=== PATIENT | male | born 1935 | race Caucasian/White ===

== ENCOUNTER 2016-08-03 06:12 | Observation (INO) | payer MEDICARE, BC ==
[2016-07-27 14:04] LABS: HEMATOCRIT 34.2 % (40.0-51.0); HEMOGLOBIN 10.7 g/dL (13.6-17.8)
[2016-07-27 14:21] LABS: CALCIUM, SERUM 8.1 MG/DL (8.5-10.4); CHLORIDE, SERUM 110 MMOL/L (96-112); CO2 (CARBON DIOXIDE) 29 MMOL/L (24-34); CREATININE 2.59 MG/DL (0.70-1.30); GFR AFRICAN AMERICAN 26 ML/MIN (>=60); GFR NON AFRICAN AMERICAN 22 ML/MIN (>=60); GLUCOSE, SERUM 125 MG/DL (60-99); POTASSIUM, SERUM 4.9 MMOL/L (3.5-5.3); SODIUM, SERUM 145 MMOL/L (135-148)
[2016-07-27 14:24] LABS: BUN (BLOOD UREA NITROGEN) 58 MG/DL (6-23)
[2016-07-27 14:30] LABS: ASCORBIC ACID (UR NOT ORDER) NEG (NEG); BILIRUBIN, URINE NEGATIVE (NEG); KETONE, URINE NEGATIVE (NEG); LEUKOCYTE ESTERASE(NOT OR NEG (NEG); WBC (NOT ORDERED) (RFLEX) < 1 (0-5)
--- NOTE | ~2016-08-03 | OP ---
Record Of Operation [facility] [address] [place]. [address] NAME: JAYANT FARLEY : 33 STATUS : ADM IN PAT#: [id number] AGE: 81 ADM/REG DATE : 08/03/16 MR#: [id number] REPORT SERV DATE: 08/03/16 DICTATED BY: ORLANDO PRICE JR. DATE: 08/03/16 REPORT STATUS : Draft TRANSCRIBED BY: MODL DATE: 08/03/16 DATE OF PROCEDURE: 08/03/2016 SURGEON: Orlando Price M.D. PREOPERATIVE DIAGNOSIS: Stress urinary incontinence. POSTOPERATIVE DIAGNOSIS: Stress urinary incontinence. PROCEDURE PERFORMED: Revision and replacement of artificial urinary sphincter cuff. COMPLICATIONS: None. CONSULTATIONS: None. ANESTHESIA: General with laryngeal mask airway. SPECIMENS: Old sphincter cuff. DRAINS: A 14-Russian Ayala catheter. ESTIMATED BLOOD LOSS: 5 mL. INDICATION: Mr. Farley is an 81-year-old gentleman, who is status post radical retropubic prostatectomy and placement of artificial urinary sphincter at [place] many years ago. 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 He does have some control of his urinary bladder but does have continuous stress incontinence and has to wear multiple pads per day. On cystoscopic examination, the sphincter appears to be in good position. There was some question of a stricture at the site of the sphincter, but otherwise the sphincter just appeared to not coapt very well on cystoscopic examination. PROCEDURE IN DETAIL: After the patient was identified and proper informed consent was obtained, he was taken to the operating room. General anesthesia was performed without complication using a laryngeal mask airway. He was then prepped and draped in a normal sterile fashion in the lithotomy position. A perineal incision was made in the midline and a Davenport retractor was used to gain visibility and access to the peritoneum. Using electrocautery, I was able to cut down on to the sphincter itself and expose it using sharp dissection laterally and posteriorly with Metzenbaum scissors. I removed the sphincter from around the urethra and identified that there was some urethral atrophy present. Cystoscopic examination at this point did reveal a slight stricture of the urethra. This was dilated gently using a 14 and 16-Russian catheters over a guidewire. I then made a second incision suprapubically and identified and brought out the old sphincter tubing. I measured the amount of fluid within the reservoir, there was only 19 mL, I replaced that with 23 mL and replaced the rubber shod on the reservoir tubing. The patient was happy with the current sphincter pump mechanism and I did not remove it in its location. I then measured the urethra, it measured at 3.0 cm in circumference. I placed a 3.5 cm cuff around the urethra Record Of Operation [facility] [id number] [place]. [address] NAME: JAYANT FARLEY : 34 STATUS : ADM IN PAT#: [id number] AGE: 81 ADM/REG DATE : 08/03/16 MR#: [id number] REPORT SERV DATE: 08/03/16 DICTATED BY: ORLANDO PRICE JR. DATE: 08/03/16 REPORT STATUS : Draft TRANSCRIBED BY: RAFA DATE: 08/03/16 and brought the tubing up to the suprapubic incision. I connected it to the pump device and then cycled the sphincter. On examination with the cystoscope, the sphincter appeared to function properly. There was nice coaptation of the sphincter and it appeared to be in good position without any twists or distortion of the urethral lumen. I then irrigated both wounds copiously using sterile saline with some antibacterial additive. I then closed the suprapubic incision in 2 layers, 1 layer of 3-0 Vicryl suture in the Anat's fascia and a 4 0 Monocryl in the skin. I then closed the perineal wound in multiple layers of 2-0 and 3-0 Vicryl reapproximating the layers of the perineum finally using a 3-0 chromic in the skin and Dermabond was used for dressing in this area. I then performed cystoscopy once again, cycled the sphincter under direct vision, once again all appeared to be in good position. I then placed a 14-Russian catheter over a guidewire through the deactivated sphincter, placed it to gravity drainage. The patient was awakened in the operating room and transferred to the postanesthesia care unit in stable condition. I will remove his catheter in the morning. I will see him back in the office in two weeks. DULCE MARIA/RAFA Orlando Price Jr., M.D. / [id number] CC: Orlando Price Jr., M.D.
[~2016-08-03 06:12] MED LIST: ACET500CAP PO; APRES50 PO; ASAB PO; C1 PO; CARDCD180 PO; CELEXA20 PO; COREG12 PO; COREG25 PO; COSAMIN DS1 TAB PO; COUMADIN7.5 MG PO; COZ50 PO; COZAAR100 MG PO; DEMA20 PO; FISH OIL OTC PO; FISH-EPA1000 MG PO; FOLINIC PLUS PO; FORTAMET500 MG PO; GLUCOPHAGE1000 MG PO; GLUCOSAMINEPO PO; JANTOVEN4 MG PO; JANTOVEN5 MG PO; JANTOVEN7.5 MG PO; JANUVIA50 PO; L20 PO; LANTUS SC; LOTEMAX0.5 % OP; MAGNESIUM 250MG PO; METANX PO; MIRAPEX250 PO; MONODOX100 MG PO; MULTIVIT/MIN PO; NEUR100 PO; NORV10 PO; NORV5 PO; OCUVITE PO; PLAVIX PO; PRAVACHOL40 MG PO; SPIRO25 PO; TEARS PLUS OPH; TRESIBA FL200 UNIT/1 SC; VESICARE5 PO; VIGAMOX OPH; VITAMIN D2000 UNIT PO; VITAMIN D31000 UNIT PO; VITC500 PO; Z100 PO; Z300 PO; ZOCOR40 PO; ZOL50 PO; ZOLOFT25 MG PO; ZYRTEC ALLGY10 MG PO
[2016-08-03 07:06] LABS: INTERNATIONAL NORMAL RATI 1.3 UNITS (-); PROTIME (NOT ORD) 16.1 SEC (12.0-14.5)
[2016-08-04] MEDS ORDERED: CEFT5 PO (11:55)
[2016-08-04] MEDS ORDERED: NORCO1 TA2 PO (11:56)
[2016-08-04] MEDS ORDERED: TRESIBA FL100 UNIT/1 (11:58)
== END 2016-08-04 13:33 | disposition home or self-care (01) ==
LOC: SDC/OF 06:12 → PACU 11:24 → 4SO 13:15
PROVIDERS: Urology
PROC: 0TR Urinary System, Replacement (ICD-10-PCS; principal; 2016-08-03 07:45)
DX: N39.3 Stress incontinence (female) (male) (principal); I11.0 Hypertensive heart disease with heart failure; I50.9 Heart failure, unspecified; E66.01 Morbid (severe) obesity due to excess calories; I49.9 Cardiac arrhythmia, unspecified; E11.9 Type 2 diabetes mellitus without complications; F32.9 Major depressive disorder, single episode, unspecified; M19.90 Unspecified osteoarthritis, unspecified site; G89.29 Other chronic pain; Z68.36 Body mass index [BMI] 36.0-36.9, adult; Z99.89 Dependence on other enabling machines and devices; Z88.8 Allergy status to other drugs, medicaments and biological substances; Z79.899 Other long term (current) drug therapy; Z98.52 Vasectomy status; Z98.41 Cataract extraction status, right eye; Z98.42 Cataract extraction status, left eye; Z98.890 Other specified postprocedural states; Z90.89 Acquired absence of other organs
CPT/HCPCS: 80048; 81001; 82962; 85014; 85018; 85610; 88300; 93005; 96372; 96374; 96376; A9270-GY; C1758; C1769; C1815; G0378; J0690; J1580; J3010

== ENCOUNTER 2016-09-21 06:54 | Day surgery (SDC) | payer MEDICARE, BC ==
[2016-09-19 14:24] LABS: HEMATOCRIT 34.1 % (40.0-51.0)
[2016-09-19 14:34] LABS: BUN (BLOOD UREA NITROGEN) 57 MG/DL (6-23); CALCIUM, SERUM 8.8 MG/DL (8.5-10.4); CHLORIDE, SERUM 108 MMOL/L (96-112); CO2 (CARBON DIOXIDE) 29 MMOL/L (24-34); CREATININE 2.56 MG/DL (0.70-1.30); GFR AFRICAN AMERICAN 26 ML/MIN (>=60); GFR NON AFRICAN AMERICAN 22 ML/MIN (>=60); GLUCOSE, SERUM 113 MG/DL (60-99); SODIUM, SERUM 144 MMOL/L (135-148)
[2016-09-19 14:57] LABS: ASCORBIC ACID (UR NOT ORDER) 20 (NEG); BILIRUBIN, URINE NEGATIVE (NEG); KETONE, URINE NEGATIVE (NEG); LEUKOCYTE ESTERASE(NOT OR NEG (NEG); WBC (NOT ORDERED) (RFLEX) < 1 (0-5)
--- NOTE | ~2016-09-21 | OP ---
Record Of Operation [facility] [address] [place]. [address] NAME: JAYANT FARLEY : 33 STATUS : [facility]#: [id number] AGE: 81 ADM/REG DATE : 09/21/16 MR#: [id number] REPORT SERV DATE: 09/21/16 DICTATED BY: ORLANDO PRICE JR. DATE: 09/21/16 REPORT STATUS : Draft TRANSCRIBED BY: MODL DATE: 09/21/16 DATE OF PROCEDURE: 09/21/2016 SURGEON: Orlando Price M.D. 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 POSTOPERATIVE DIAGNOSIS: Artificial urinary sphincter and urethral stenosis. PROCEDURE PERFORMED: Activation of artificial urinary sphincter and cystoscopy. COMPLICATIONS: None. CONSULTATIONS: None. ANESTHESIA: General with laryngeal mask airway. SPECIMENS: None. DRAINS: None. ESTIMATED BLOOD LOSS: None. INDICATION: Mr. Farley is an 81-year-old gentleman, who I performed an artificial sphincter revision replacing his 4 cm cuff with a 3.5 cm cuff approximately six weeks ago. He had some difficulties with replacement and some scarring in the urethra at that time. I had some difficulties placing a Ayala catheter after sphincter placement. He comes today for activation of his sphincter due to pain attempted to activate it in the office. However, he had quite a bit of discomfort with doing that in the office and also I wanted to re-evaluate his urethra. PROCEDURE IN DETAIL: After the patient was identified and proper informed consent was obtained, he was taken to the operating room. General anesthesia was performed without complication using a laryngeal mask airway. He was then prepped and draped in a normal sterile fashion in the lithotomy position. Cystoscopic examination of the urethra revealed the sphincter to be in good position. It was patent at that time and deactivated. The urethra did show some areas of narrowing at the site of the sphincter itself, that looked to be approximately 14-Kenyan in diameter. I then activated the sphincter and observed the sphincter close. I filled the bladder with sterile saline and then attempted to compress the bladder after the sphincter had filled and I did not note any leakage. There appears to be a good result. I did discuss with the patient and family that if he needed to be catheterized in the future, this would be quite difficult and that would likely be best done by urologist with a 12 or 14-Kenyan catheter. The patient was awakened in the operating room and transferred to the postanesthesia care unit in stable condition. Record Of Operation [address] [address] NAME: JAYANT FARLEY : 33 STATUS : [facility] PAT#: [id number] AGE: 81 ADM/REG DATE : 09/21/16 MR#: [id number] REPORT SERV DATE: 09/21/16 DICTATED BY: ORLANDO PRICE JR. DATE: 09/21/16 REPORT STATUS : Draft TRANSCRIBED BY: RAFA DATE: 09/21/16 DULCE MARIA/RAFA Orlando Price Jr., M.D. / [id number] CC: Bradford Schafer Jr., M.D.
[~2016-09-21 06:54] MED LIST changes: +CEFT5 PO; +NORCO1 TA2 PO; +TRESIBA FL100 UNIT/1
[2016-09-21 07:30] LABS: INTERNATIONAL NORMAL RATI 2.3 UNITS (-)
[2016-09-21 07:31] LABS: PROTIME (NOT ORD) 25.3 SEC (12.0-14.5)
== END 2016-09-21 13:50 | disposition home or self-care (01) ==
LOC: SDC 06:54
PROVIDERS: Urology
PROC: 0T7D8DZ Dilation of Urethra with Intraluminal Device, Via Natural or Artificial Opening Endoscopic (ICD-10-PCS; principal; 2016-09-21 09:00)
DX: N35.9 Urethral stricture, unspecified (principal); I13.0 Hypertensive heart and chronic kidney disease with heart failure and stage 1 through stage 4 chronic kidney disease, or unspecified chronic kidney disease; E11.22 Type 2 diabetes mellitus with diabetic chronic kidney disease; N18.9 Chronic kidney disease, unspecified; I50.9 Heart failure, unspecified; M19.90 Unspecified osteoarthritis, unspecified site; E78.00 Pure hypercholesterolemia, unspecified; G47.33 Obstructive sleep apnea (adult) (pediatric); Z79.899 Other long term (current) drug therapy; Z79.52 Long term (current) use of systemic steroids; Z79.01 Long term (current) use of anticoagulants; Z88.8 Allergy status to other drugs, medicaments and biological substances; Z83.3 Family history of diabetes mellitus; Z85.46 Personal history of malignant neoplasm of prostate; Z87.442 Personal history of urinary calculi; Z79.4 Long term (current) use of insulin; Z98.41 Cataract extraction status, right eye; Z98.42 Cataract extraction status, left eye; Z98.890 Other specified postprocedural states
CPT/HCPCS: 80048; 81001; 82962; 85014; 85018; 85610; 93005; J2250; J2405; J3010; Q9967

== ENCOUNTER 2016-11-01 13:19 | Emergency (ER) | payer MEDICARE, BC ==
[2016-11-01 13:50] LABS: PARTIAL THROMBO TIME 38.9 SEC (22.5-37.2)
[2016-11-01 13:56] LABS: INTERNATIONAL NORMAL RATI 1.8 UNITS (-)
[2016-11-01 13:57] LABS: CALCIUM, SERUM 8.4 MG/DL (8.5-10.4); CHLORIDE, SERUM 110 MMOL/L (96-112); CO2 (CARBON DIOXIDE) 29 MMOL/L (24-34); CREATININE 2.63 MG/DL (0.70-1.30); GFR AFRICAN AMERICAN 25 ML/MIN (>=60); GFR NON AFRICAN AMERICAN 22 ML/MIN (>=60); GLUCOSE, SERUM 124 MG/DL (60-99); POTASSIUM, SERUM 5.2 MMOL/L (3.5-5.3); SODIUM, SERUM 144 MMOL/L (135-148)
[2016-11-01 13:58] LABS: BUN (BLOOD UREA NITROGEN) 48 MG/DL (6-23)
[2016-11-01 13:59] LABS: CHEST PAIN PROFILE TAT 0 Hrs 23 Mins; TROPONIN I 0.05 NG/ML (<0.05)
[2016-11-01 14:02] LABS: PROTIME (NOT ORD) 20.8 SEC (12.0-14.5)
[2016-11-01 17:07] LABS: BASOPHILS 0.3 %; BASOPHILS ABSOLUTE 0.02 10/3/uL (0.0-0.16); EOSINOPHILS 3.8 %; EOSINOPHILS ABSOLUTE 0.24 10/3/uL (0.0-0.53); HEMATOCRIT 32.5 % (40.0-51.0); HEMOGLOBIN 10.3 g/dL (13.6-17.8); LYMPHOCYTES 30.2 %; LYMPHOCYTES ABSOLUTE 1.93 10/3/uL (0.67-4.30); MANUAL DIFF NO %; MEAN CORPUS HGB CONC 31.7 g/dL (32.0-36.0); MEAN CORPUSCULAR HEMOGLOB 32.6 pg (26.0-34.0); MEAN CORPUSCULAR VOLUME 102.8 fL (80-100); MONOCYTES 8.4 %; MONOCYTES ABSOLUTE 0.54 10/3/uL (0.21-1.20); NEUTROPHILS 57.3 %; NEUTROPHILS ABSOLUTE 3.67 10/3/uL (2.02-8.40); PLATELET COUNT 116 10/3/uL (150-400); RED CELL COUNT 3.16 10/6/uL (4.7-6.1); WHITE BLOOD CELLS 6.4 10/3/uL (4.5-10.5)
[2016-11-01 19:06] LABS: ASCORBIC ACID (UR NOT ORDER) 20 (NEG); BILIRUBIN, URINE NEGATIVE (NEG); KETONE, URINE NEGATIVE (NEG); LEUKOCYTE ESTERASE(NOT OR NEG (NEG); NITRITE (URINE) NEG (NEG); WBC (NOT ORDERED) (RFLEX) < 1 (0-5)
[2016-11-01 19:07] LABS: ER URINALYSIS TAT 0 Hrs 33 Mins
== END 2016-11-01 19:44 | disposition home or self-care (01) ==
LOC: ER 13:19
PROVIDERS: Emergency Medicine
DX: R42 Dizziness and giddiness (principal); N18.9 Chronic kidney disease, unspecified; I48.91 Unspecified atrial fibrillation; Z95.0 Presence of cardiac pacemaker; Z88.8 Allergy status to other drugs, medicaments and biological substances; Z79.899 Other long term (current) drug therapy; Z79.4 Long term (current) use of insulin; Z79.01 Long term (current) use of anticoagulants
CPT/HCPCS: 70450; 71020; 80048; 81001; 83735; 83880; 84484; 85025; 85610; 85730; 93005; 99285; A9270-GY